=== PATIENT | female | born 1995 | race Caucasian/White ===

== ENCOUNTER 2019-01-05 15:48 | Emergency (ER) | payer MEDICAID ==
[2019-01-05 16:09] VITALS: BP 142/87; PULSE 102; RESP 16; TEMP 99.2; O2SAT 97
--- NOTE | 2019-01-05 16:42 | ED PDOC ---
HPI: Influenza Time Seen by Provider: 01/05/19 16:10 Chief Complaint: Flu-like Symptoms Chief Complaint (Provider): Flu-like Symptoms History Per: Patient Exam Limitations: no limitations Onset/Duration Of Symptoms: Days (x2) Additional complaint(s):: 23 year old female presents to the ED for evaluation of flu-like symptoms including fever, cough, congestion, body aches, and sore throat for the past two days. She notes taking over the counter medicines like Motrin for transient relief of symptoms, last dose this morning upon waking up. Additionally, this morning patient also noticed multiple puss filled masses around her face, appearing worse than her normal acne. Otherwise, denies chest pain, shortness of breath, sick contact, recent travel, abdominal pain, nausea, vomiting, and diarr hea. Of note, patient did not receive flu shot this year. PMD: Juan Miguel Orozco Past Medical History Reviewed: Historical Data, Nursing Documentation, Vital Signs Vital Signs: Last Vital Signs Temp 99.2 F 01/05/19 16:06 Pulse 102 H 01/05/19 16:06 Resp 16 01/05/19 16:06 BP 142/87 01/05/19 16:06 Pulse Ox 97 01/05/19 16:06 - Medical History PMH: Asthma - Surgical History Surgical History: No Surg Hx - Family History Family History: States: Unknown Family Hx - Social History Current smoker - smoking cessation education provided: No Alcohol: None Drugs: Denies - Immunization History Hx Influenza Vaccination: No - Home Medications Home Medications: Ambulatory Orders Medication Instructions Recorded Acetaminophen with Codeine 1 tab PO Q6 PRN #15 tab 01/19/15 [Tylenol with Codeine No. 3 300 mg-30 mg] Cyclobenzaprine HCl [Flexeril] 10 mg PO Q8 #15 tab 01/19/15 Benzonatate [Tessalon Perle] 100 mg PO Q8 PRN #14 capsule 01/05/19 Cephalexin [cephalexin] 500 mg PO Q6 #28 cap 01/05/19 Oseltamivir Cap [Tamiflu] 75 mg PO BID #9 cap 01/05/19 - Allergies Allergies/Adverse Reactions: Allergies Allergy/AdvReac Type Severity Reaction Status Date / Time PORK Allergy ANAPHYLAXIS Verified 01/05/19 16:06 Review of Systems ROS Statement: Except As Marked, All Systems Reviewed And Found Negative Constitutional: Positive for: Fever, Other (body aches) ENT: Positive for: Nose Congestion, Throat Pain Cardiovascular: Negative for: Chest Pain Respiratory: Positive for: Cough. Negative for: Shortness of Breath Gastrointestinal: Negative for: Nausea, Vomiting, Abdominal Pain, Diarrhea Skin: Positive for: Other (multiple puss filled masses on face) Physical Exam - Reviewed Nursing Documentation Reviewed: Yes Vital Signs Reviewed: Yes - Physical Exam Appears: Positive for: No Acute Distress Eye Exam: Positive for: Normal appearance ENT: Positive for: Other (multiple pustules around perioral area with no fluctuance, discharge, or vesicles). Negative for: Pharyngeal Erythema, Tonsillar Exudate, Tonsillar Swelling Cardiovascular/Chest: Positive for: Regular Rate, Rhythm Respiratory: Positive for: Normal Breath Sounds. Negative for: Respiratory Distress Neurologic/Psych: Positive for: Alert, Oriented (x3) Medical Decision Making Medical Decision Making: Time: 1620 Initial Impression: flu-like symptoms Initial Plan: --Tamiflu 75mg PO --Rapid strep Likely diagnosis of flu discussed with patient. Advised that symptoms have been ongoing for 2 days, and therefore patient is inside the therapeutic window to give Tamiflu. Encouraged symptomatic treatment with intake of fluids, bed rest, Motrin and Tylenol. --- Scribe Attestation: Documented by Katherine Granda, acting as a scribe for Cecil Morillo PA-C. Provider Scribe Attestation: All medical record entries made by the Scribe were at my direction and personally dictated by me. I have reviewed the chart and agree that the record accurately reflects my personal performance of the history, physical exam, medical decision making, and the department course for this patient. I have also personally directed, reviewed, and agree with the discharge instructions and disposition. - ECG O2 Sat by Pulse Oximetry: 97 (RA) Pulse Ox Interpretation: Normal Disposition - Clinical Impression Clinical Impression: Influenza-like illness, Acne - Patient ED Disposition Is Patient to be Admitted: No - Disposition Referrals: [facility] [Outside] Disposition: Routine/Home Disposition Time: 17:02 Condition: STABLE Additional Instructions: FOLLOW UP WITH [facility] FOR FURTHER EVALUATION RETURN TO ED IMMEDIATELY IF SYMPTOMS WORSEN ELIZA MCHUGH, thank you for letting us take care of you today. Your provider was Azael Quinteros MD and you were treated for THROAT PAIN, FACIAL RASH. The emergency medical care you received today was directed at your acute symptoms. If you were prescribed any medication, please fill it and take as directed. It may take several days for your symptoms to resolve. Return to the Emergency Department if your symptoms worsen, do not improve, or if you have any other problems. Please contact your doctor or call one of the physicians/clinics you have been referred to that are listed on the Patient Visit Information form that is included in your discharge packet. Bring any paperwork you were given at discharge with you along with any medications you are taking to your follow up visit. Our treatment cannot replace ongoing medical care by a primary care provider outside of the emergency department. Thank you for allowing the [facility] team to be part of your care today. If you had an X-Ray or CT scan: A Radiologist will review the ED reading if any change in treatment is needed we will contact you. If you had a blood, urine, or wound culture: It will take several days for the results, if any change in treatment is needed we will contact you. If you had an STI test: It will take 48 hours for the results. Please call after 1 week if you have not heard back. Prescriptions: Benzonatate [Tessalon Perle] 100 mg PO Q8 PRN #14 capsule PRN Reason: Cough Cephalexin [cephalexin] 500 mg PO Q6 #28 cap Oseltamivir Cap [Tamiflu] 75 mg PO BID #9 cap Instructions: Acne (ED), Flu, Adult (DC) Forms: [facility] (Sinhala), [facility] ED School/Work Excuse
== END 2019-01-05 17:12 | disposition home or self-care (01) ==
LOC: H.ER 15:48
DX: J11.1 Influenza due to unidentified influenza virus with other respiratory manifestations (principal); J45.909 Unspecified asthma, uncomplicated